=== PATIENT | male | born 1980 | race Caucasian/White ===

== ENCOUNTER 2018-09-26 15:46 | Emergency (ER) | payer SELFPAY ==
[2018-09-26] MEDS ORDERED: Ketorolac 30 MG/ML SDV IVPUSH ONE (16:15)
[2018-09-26] MEDS ORDERED: Sodium Chloride 0.9% 10 ML Syringe FLUSH PRN (16:15)
[2018-09-26 16:46] LABS: ANION GAP 16.4; CHLORIDE,CL 104 mmol/L (101-111); SODIUM,NA 136 mmol/L (135-145)
[2018-09-26] MEDS ORDERED: HYDROmorphone 1 MG/ML Syringe IVPUSH ONE (17:02)
--- NOTE | 2018-09-26 17:09 | EDM.PDOC ---
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 He stood up and felt a pop below right posterior shoulder blade. Patient reports falling to the floor due to pain. The patient went home, had a couple of drinks and came here due to his pain. Onset: Today Duration: Getting Worse Location: Reports: Back Quality: Reports: Ache Severity: Moderate Improves with: Reports: None Worsens with: Reports: None Associated Symptoms: Reports: No Other Symptoms - Related Data Allergies Allergy/AdvReac Type Severity Reaction Status Date / Time bee venom protein (honey bee) Allergy Anaphylactic Verified 09/26/18 15:57 Shock peanut Allergy Anaphylactic Verified 09/26/18 15:57 Shock Home Meds: Home Meds . [No Known Home Meds] 09/26/18 [History] ED ROS GENERAL - Review of Systems Review Of Systems: ROS reveals no pertinent complaints other than HPI. ED EXAM,LOWER BACK PAIN/INJURY - Physical Exam Exam: See Below Exam Limited By: No Limitations General Appearance: Alert, WD/WN, No Apparent Distress Eye Exam: Bilateral Eye: EOMI, Normal Inspection, PERRL Ears: Normal External Exam, Normal Canal, Hearing Grossly Normal, Normal TMs Nose: Normal Inspection, Normal Mucosa, No Blood Throat/Mouth: Normal Inspection, Normal Lips, Normal Teeth, Normal Gums, Normal Oropharynx, Normal Voice, No Airway Compromise Head: Atraumatic, Normocephalic Neck: Normal Inspection, Supple, Non-Tender, Full Range of Motion Respiratory/Chest: No Respiratory Distress, Lungs Clear, Normal Breath Sounds, No Accessory Muscle Use, Chest Non-Tender Cardiovascular: Normal Peripheral Pulses, Regular Rate, Rhythm, No Edema, No Gallop, No JVD, No Murmur, No Rub GI/Abdominal: Normal Bowel Sounds, Soft, Non-Tender, No Organomegaly, No Distention, No Abnormal Bruit, No Mass (Male) Exam: Deferred Rectal (Males) Exam: Deferred Back Exam: Other (pain below right posterior scapula) Extremities: Normal Inspection, Normal Range of Motion, Non-Tender, No Pedal Edema, Normal Capillary Refill Neurological: Alert, Normal Mood/Affect, Normal Dorsiflexion, CN II-XII Intact, Normal Plantar Flexion, Normal Gait, Normal Reflexes, No Motor/Sensory Deficits , Oriented x 3 Psychiatric: Normal Affect, Normal Mood Skin Exam: Warm, Dry, Intact, Normal Color, No Rash Lymphatic: No Adenopathy Course - Vital Signs Last Recorded V/S: Last Vital Signs Temp 36.9 C 09/26/18 15:58 Pulse 102 H 09/26/18 15:58 Resp 16 09/26/18 15:58 BP 153/94 H 09/26/18 15:58 Pulse Ox 97 09/26/18 15:58 - Orders/Labs/Meds Orders: Active Orders 24 hr Category Date Time Status DRUG SCREEN URINE BIORAD [URCHEM] Stat Lab 09/26/18 15:56 Ordered UA RFX KIERAN AND CULT IF INDIC [URIN] Urgent Lab 09/26/18 15:56 Ordered Sodium Chloride 0.9% [Saline Flush] Med 09/26/18 16:15 Ordered 10 ml FLUSH ASDIRECTED PRN Saline Lock Insert [OM.PC] Routine Oth 09/26/18 16:15 Ordered Medication Orders Sodium Chloride (Saline Flush) 10 ml FLUSH ASDIRECTED PRN PRN Reason: Keep Vein Open Last Admin: 09/26/18 16:23 Dose: 10 ml Labs: Laboratory Tests 09/26/18 09/26/18 09/26/18 Range/Units 16:20 16:20 16:20 WBC 8.1 (5.0-10.0) 10^3/uL RBC 4.76 (4.6-6.2) 10^6/uL Hgb 15.3 (14.0-18.0) g/dL Hct 43.7 (40.0-54.0) % MCV 91.8 (80-100) fL MCH 32.1 (27.0-34.0) pg MCHC 35.0 (33.0-35.0) g/dL Plt Count 318 (150-450) 10^3/uL Neut % (Auto) 67.1 (42.2-75.2) % Lymph % (Auto) 22.3 (20.5-50.1) % Cameron % (Auto) 8.6 H (2-8) % Eos % (Auto) 1.9 (1.0-3.0) % Baso % (Auto) 0.1 (0.0-1.0) % Sodium 136 (135-145) mmol/L Potassium 3.4 L (3.6-5.0) mmol/L Chloride 104 (101-111) mmol/L Carbon Dioxide 19.0 L (21.0-31.0) mmol/L Anion Gap 16.4 BUN 18 (7-18) mg/dL Creatinine 1.0 (0.6-1.3) mg/dL Est Cr Clr Drug Dosing 103.85 mL/min Estimated GFR (MDRD) > 60 BUN/Creatinine Ratio 18.00 Glucose 97 (74-105) mg/dL Calcium 9.2 (8.4-10.2) mg/dl Total Bilirubin 0.5 (0.2-1.0) mg/dL AST 85 H (10-42) IU/L ALT 95 H (10-60) IU/L Alkaline Phosphatase 65 (42-121) IU/L Total Protein 7.4 (6.7-8.2) g/dl Albumin 4.2 (3.2-5.5) g/dl Globulin 3.2 Albumin/Globulin Ratio 1.31 Ethyl Alcohol 47 mg/dL Meds: Medications Generic Name Dose Route Start Last Admin Trade Name Freq PRN Reason Stop Dose Admin Sodium Chloride 10 ml 09/26/18 16:15 09/26/18 16:23 Saline Flush FLUSH 10 ml ASDIRECTED PRN Administration Keep Vein Open Discontinued Medications Generic Name Dose Route Start Last Admin Trade Name Freq PRN Reason Stop Dose Admin Hydromorphone HCl 0.5 mg 09/26/18 17:02 Dilaudid IVPUSH 09/26/18 17:03 ONETIME ONE Ketorolac Tromethamine 30 mg 09/26/18 16:15 09/26/18 16:31 Toradol IVPUSH 09/26/18 16:16 30 mg ONETIME ONE Administration Orphenadrine Citrate 60 mg 09/26/18 16:15 09/26/18 16:28 Norflex IM Not Given Q12H PABLO Orphenadrine Citrate 60 mg 09/26/18 16:29 09/26/18 16:35 Norflex IM 09/26/18 16:30 60 mg ONETIME ONE Administration Departure - Departure Time of Disposition: 17:06 Disposition: Home, Self-Care 01 Condition: Fair Clinical Impression: Muscle strain of upper back - Discharge Information *PRESCRIPTION DRUG MONITORING PROGRAM REVIEWED*: Yes *COPY OF PRESCRIPTION DRUG MONITORING REPORT IN PATIENT AIDAN: No Instructions: Muscle Strain, [id number] Forms: ED Department Discharge Care Plan Goals: The patient was advised of the examination results during the visit. The patient was given an injection of Norflex (60 mg), IV Toradol (30 mg) and IV Dilaudid (0.5 mg) while in the ED. The patient was discharged with scripts for Toradol (10 mg) #20 to take 1 by mouth every 6 hours, Flexeril (10 mg) #20 to take 1 by mouth at bedtime as needed and [place] (10/325) #10 to take 1 by mouth every 6 hours as needed for breakthrough pain. If the patient has any additional symptoms or concerns, the patient should either return to the emergency department or visit his primary care facility. - My Orders Last 24 Hours: My Active Orders 09/26/18 15:56 DRUG SCREEN URINE BIORAD [URCHEM] Stat UA RFX KIERAN AND CULT IF INDIC [URIN] Urgent 09/26/18 16:15 Sodium Chloride 0.9% [Saline Flush] 10 ml FLUSH ASDIRECTED PRN Saline Lock Insert [OM.PC] Routine - Assessment/Plan Last 24 Hours: My Active Orders 09/26/18 15:56 DRUG SCREEN URINE BIORAD [URCHEM] Stat UA RFX KIERAN AND CULT IF INDIC [URIN] Urgent 09/26/18 16:15 Sodium Chloride 0.9% [Saline Flush] 10 ml FLUSH ASDIRECTED PRN Saline Lock Insert [OM.PC] Routine I have read and agree with the documentation that has been completed regarding this visit. By signing this record, I attest that the documentation was completed in my physical presence and is an accurate record of the encounter.
== END 2018-09-26 17:24 | disposition home or self-care (01) ==
LOC: DL.ED 15:46
DX: S29.012A Strain of muscle and tendon of back wall of thorax, initial encounter (principal); Z91.010 Allergy to peanuts; Z91.030 Bee allergy status; W19.XXXA Unspecified fall, initial encounter
CPT/HCPCS: 36415; 80053; 85025; 96372; 96374; 96375; 99283; G0480; J1170; J1885; J2360

== ENCOUNTER 2019-08-10 15:25 | Emergency (ER) | payer SELFPAY ==
--- NOTE | 2019-08-10 15:57 | EDM.PDOC ---
<Sam Jhaveri - Last Filed: 08/10/19 15:51> ED HPI GENERAL MEDICAL PROBLEM - General Chief Complaint: Headache Stated Complaint: LEFT SIDE OF HEAD, MIGRAIN PAIN ....PER PT Time Seen by Provider: 08/10/19 15:52 Source of Information: Reports: Patient, RN, RN Notes Reviewed History Limitations: Reports: No Limitations - History of Present Illness INITIAL COMMENTS - FREE TEXT/NARRATIVE: 38 year old male presents to the ER for complaints of left sided head, face and jaw pain. Symptoms have been going on for about a month but the severe pain has come on in the last 3 days. He has upper and lower dental pain and has a cracked back molar on the bottom left as well. He states he has been having a bad taste in his mouth the last few days as well with post nasal drainage. He has had migraines in the past but states this is a different kind of pain. He states about 1 week ago the symptoms stopped completely but after 2 days of relief the pain came back and has been worse since then. He has had sinus congestion, sore throat and dental pain. Denies N/V, fever/chills. Duration: Week(s): (4), Getting Worse Location: Reports: Head, Face Quality: Reports: Ache, Sharp Severity: Moderate Improves with: Reports: None Worsens with: Reports: None Associated Symptoms: Reports: Headaches. Denies: cough w sputum, Fever/Chills, Loss of Appetite, Nausea/Vomiting, Shortness of Breath, Weakness Head Pain Score (Numeric/FACES): 7 - Related Data Allergies Allergy/AdvReac Type Severity Reaction Status Date / Time bee venom protein (honey bee) Allergy Anaphylactic Verified 08/10/19 15:30 Shock citalopram [From Celexa] Allergy Hives Verified 08/10/19 15:30 ketorolac Allergy Hives Verified 08/10/19 15:30 peanut Allergy Anaphylactic Verified 08/10/19 15:30 Shock tramadol Allergy Hives Verified 08/10/19 15:30 trazodone Allergy Hives Verified 08/10/19 15:30 Home Meds: Home Meds . [No Known Home Meds] 09/26/18 [History] Past Medical History - Past Health History Medical/Surgical History: Denies Medical/Surgical History HEENT History: Reports: Impaired Vision Cardiovascular History: Reports: None Respiratory History: Reports: Asthma Gastrointestinal History: Reports: None Genitourinary History: Reports: None Musculoskeletal History: Reports: None Neurological History: Reports: None Psychiatric History: Reports: None Endocrine/Metabolic History: Reports: None Hematologic History: Reports: None Immunologic History: Reports: None Oncologic (Cancer) History: Reports: None Dermatologic History: Reports: None - Infectious Disease History Infectious Disease History: Reports: Hepatitis C - Past Surgical History Head Surgeries/Procedures: Reports: None Social & Family History - Family History Family Medical History: Noncontributory - Tobacco Use Smoking Status *Q: Current Every Day Smoker Years of Tobacco use: 20 Packs/Tins Daily: 1 - Caffeine Use Caffeine Use: Reports: Coffee - Alcohol Use Days Per Week of Alcohol Use: 3 Number of Drinks Per Day: 10 Total Drinks Per Week: 30 - Recreational Drug Use Recreational Drug Use: No ED ROS GENERAL - Review of Systems Review Of Systems: Comprehensive ROS is negative, except as noted in HPI. - Physical Exam Exam: See Below Exam Limited By: No Limitations General Appearance: Alert, WD/WN, Mild Distress Eye Exam: Bilateral Eye: EOMI, Normal Inspection, PERRL Ears: Normal External Exam, Normal Canal, Hearing Grossly Normal, Normal TMs Nose: Normal Inspection, Normal Mucosa, No Blood Throat/Mouth: Normal Inspection, Normal Lips, Normal Gums, Normal Oropharynx, Normal Voice, No Airway Compromise, Other (poor dentition with broken back molar on bottom left, sensitive to palpation). No: Normal Teeth Head Exam: Atraumatic, Normocephalic Neck: Normal Inspection, Supple, Non-Tender, Full Range of Motion Respiratory/Chest: No Respiratory Distress, Lungs Clear, Normal Breath Sounds, No Accessory Muscle Use, Chest Non-Tender Cardiovascular: Normal Peripheral Pulses, Regular Rate, Rhythm, No Edema, No Gallop, No JVD, No Murmur, No Rub Course - Vital Signs Last Recorded V/S: Last Vital Signs Temp 36.2 C 08/10/19 15:32 Pulse 97 08/10/19 15:32 Resp 16 08/10/19 15:32 BP 150/99 H 08/10/19 15:32 Pulse Ox 100 08/10/19 15:32 Departure - Departure Time of Disposition: 15:57 Condition: Good Clinical Impression: Sinusitis Qualifiers: Sinusitis location: maxillary Chronicity: acute Recurrence: not specified as recurrent Qualified Code(s): J01.00 - Acute maxillary sinusitis, unspecified - Discharge Information *PRESCRIPTION DRUG MONITORING PROGRAM REVIEWED*: Not Applicable *COPY OF PRESCRIPTION DRUG MONITORING REPORT IN PATIENT AIDAN: Not Applicable Instructions: Sinusitis, Adult, [id number], Sinus Headache, [id number] Forms: ED Department Discharge Additional Instructions: Rx: Clindamycin 300 mg Take Clindamycin 300 mg 4 times daily for 10 days, and take the full 10 day course. Continue to use ibuprofen and tylenol for pain and inflammation. Drink plenty of water as well. Follow-up with primary care provider in clinic if symptoms do not improve or worsen. Make an appointment with your regular dentist if more dental pain arises which could be a dental abscess. Sepsis Event Note - Evaluation Sepsis Screening Result: No Definite Risk - Focused Exam Vital Signs: Vital Signs Temp Pulse Resp BP Pulse Ox 08/10/19 15:32 36.2 C 97 16 150/99 H 100 Date Exam was Performed: 08/10/19 Time Exam was Performed: 15:52 <Asaf Salcedo - Last Filed: 08/10/19 16:16> Course - Re-Assessments/Exams Free Text/Narrative Re-Assessment/Exam: 08/10/19 16:16 I have examined the patient. I have discussed findings and treatment plan with the PA student. I agree with the assessment and plan in the following students note. Sepsis Event Note - Focused Exam Date Exam was Performed: 08/10/19 Time Exam was Performed: 16:15
== END 2019-08-10 16:00 | disposition home or self-care (01) ==
LOC: DL.ED 15:25
CPT/HCPCS: 99283